=== PATIENT | female | born 1955 | race Caucasian/White ===

== ENCOUNTER 2018-10-13 08:02 | Day surgery (SDC) | payer BC ==
[2018-10-13] MEDS ORDERED: PROPOFOL 40 ML (10:22)
[2018-10-13] MEDS ORDERED: LIDOCAINE 100 MG SYRINGE (10:22)
== END 2018-10-13 11:37 | disposition home or self-care (01) ==
LOC: GIL 08:02
DX: K92.1 Melena (principal); K64.8 Other hemorrhoids
CPT/HCPCS: 45378